=== PATIENT | female | born 1965 | race Caucasian/White ===

== ENCOUNTER 2016-05-28 12:23 | Emergency (ER) | payer BC, OTHER ==
[2016-05-28] MEDS ORDERED: NORMAL SALINE 1,000 ML IV ONE ×2 (13:13→14:56)
[2016-05-28 13:31] LABS: Hematocrit 41.6 % (37.0-47.0); Hemoglobin 14.1 gm/dL (12.5-16.0); Mean Corpuscular Hemoglobin 29.5 pg (27-31); Mean Corpuscular Hgb Conc 33.9 g/dl (32-36); Mean Platelet Volume 8.3 fl (6.0-9.5); Neutrophil # 4.3 K/mm3 (1.3-6.0); Neutrophil % 48.7 % (42-75.0); Platelet Count 299 K/mm3 (150-450); Red Blood Count 4.78 M/mm3 (4.2-5.4); Red Cell Distribution Width 12.9 % (11.5-14.0); White Blood Count 8.8 K/mm3 (4.0-10.5)
[2016-05-28 13:37] LABS: Urine Bilirubin Negative (NEGATIVE); Urine Ketone Negative (NEGATIVE); Urine Nitrite Negative (NEGATIVE); Urine Protein Negative (NEGATIVE); Urine Specific Gravity 1.015 SP.GR. (1.005-1.010); Urine Urobilinogen Normal (NORMAL)
[2016-05-28 13:48] LABS: Urine Appearance Clear; Urine Bacteria None Seen; Urine Blood 10 /ul (NEGATIVE); Urine Color Yellow; Urine RBC 0-5 /hpf (0-5); Urine WBC 0-5 /hpf (0-5)
[2016-05-28 13:49] LABS: ALT 16 U/L (19-67); AST 11 U/L (0-48); Albumin * 3.7 gm/dl (3.4-5.0); Alkaline Phosphatase * 80 U/L (50-170); Anion Gap 12.5 mmol/L (6.8-13.8); BUN/Creatinine Ratio 13.9 (9.0-21.6); Bilirubin, Total 0.3 mg/dL (0.0-1.1); Blood Urea Nitrogen 11 mg/dL (3-23); Ca. Corrected For Albumin 9.1 mg/dL (8.4-10.2); Calcium * 9.2 mg/dL (7.9-10.9); Carbon Dioxide 26.8 mmol/L (24-32.6); Chloride 105 mmol/L (97-106); Glucose * 77 mg/dL (70-110); Potassium 4.3 mmol/L (3.4-4.6); Sodium 140 mmol/L (132-142); Total Protein 7.6 gm/dL (6.2-8.2); Troponin I Less than 0.017 ng/ml (0.00-0.10)
[2016-05-28] MEDS ORDERED: KETOROLAC TROMETHAMINE 30 MG/ML VIAL IV ONE (14:56)
[2016-05-28] MEDS ORDERED: fentaNYL CITRATE/PF 50 MCG/ML AMPUL IV ONE (14:58)
[2016-05-28] MEDS ORDERED: KETOROLAC TROMETHAMINE 30 MG/ML VIAL ONE (15:01)
[2016-05-28] MEDS ORDERED: fentaNYL CITRATE/PF 50 MCG/ML AMPUL ONE (15:04)
[2016-05-28 15:56] VITALS: BP 152/56
[2016-05-28] MEDS ORDERED: LEVOFLOXACIN/D5W 500 MG/100 ML BAG IV SCH (16:15)
--- NOTE | 2016-05-28 17:10 | ERNOTE ---
Medical Problem HPI - Narrative Date of Service: 05/28/16 - General Chief Complaint: Fever Time Seen by Provider: 05/28/16 13:00 Source: patient Exam Limitations: no limitations - Immun/Allergies/Home Medications Immunizations: IMMUNIZATION HX Immunizations Up to Date Yes History of Influenza Vaccine No Hx Pneumococcal Vaccination No Allergies/Adverse Reactions: Allergies erythromycin base [Erythromycin Base] Allergy (Verified 08/14/14 05:04) Penicillins Allergy (Verified 08/14/14 05:04) morphine Adverse Reaction (Verified 08/14/14 05:04) Home Medications: HOME MEDICATIONS Hydrocodone/Acetaminophen [Rimrock 5-325 Tablet] 1 tab PO Q6H PRN #12 tab [Last Taken Unknown] Levofloxacin [Levaquin] 500 mg PO DAILY #10 tab 05/28/16 [Last Taken Unknown] Omeprazole 40 mg PO DAILY 05/28/16 [Last Taken Unknown] - History of Present History Narrative: Patient presents with fever at home. has been having some nasal Sx for 2 weeks but over the last 3 days had been having increased frontal/facial pain/OSCAR and fever at home. No vomiting. No rash. No dysuria. works at a [employer]. Has had sick contacts. Has not seen anyone else for this. No CP or abdominal pain. Mild SOB feeling at times. Significant sinusitis close contact. No focal N/T/W. Mild lightheadedness. Timing: constant Severity: moderate Modifying Factors - (Improves): Present: other - none Modifying Factors - (Worsens): Present: other - none Review of Systems - Review of Systems Constitutional: Present: fever EYE: Absent: double vision ENT: Present: nose congestion Respiratory: Absent: cough Cardiology: Absent: chest pain Gastrointestinal/Abdominal: Absent: vomiting Genitourinary: Absent: dysuria Musculoskeletal: Absent: neck pain Skin: Absent: rash All Other Systems: All systems neg except as marked - Patient's Past Medical History Patient History - Medical: GERD Patient History - Cancer: No Hx of Cancer Patient History - Surgical Procedures: Appendectomy, Cholecystectomy, T & A, Other - Social History Smoking Status: Current every day smoker Have you smoked in the past 12 months: Yes Do you dip or chew tobacco: No Alcohol Use: rarely Drug Use: none Physical Exam - Physical Exam General Appearance: Present: alert, no apparent distress. Absent: lethargic, irritable, crying Eye Exam: Normal inspection: bilateral, PERRL: bilateral Ears, Nose, Throat: Present: nasal congestion, sinus pain/drainage, normal pharynx. Absent: abnormal TM (R), abnormal TM (L), pharyngeal erythema, pharyngeal swelling, tonsillar exudate, dry mucous membranes Neck: Present: normal inspection, nontender, supple, other - no meningeal signs Respiratory: Present: no respiratory distress, normal breath sounds, no accessory muscle use, lungs clear Cardiovascular/Chest: Present: regular rate, rhythm Gastrointestinal/Abdominal: Present: normal bowel sounds, nontender, soft. 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 Absent: motor weakness Skin Exam: Present: normal color, warm/dry. Absent: skin rash ED Progress - Results and Orders Patient's Lab Results:: I have reviewed the patient's lab results. - Vital Signs Patient's Vital Signs:: I have reviewed the patient's vital signs. Vital Signs: Vital Signs 05/28/16 05/28/16 05/28/16 12:35 13:51 14:17 Temperature 36.5 C Pulse Rate 63 55 L 59 L Respiratory 13 18 12 Rate Blood Pressure 121/47 97/43 103/49 O2 Sat by Pulse 96 96 98 Oximetry 05/28/16 05/28/16 14:52 15:50 Temperature Pulse Rate 56 L 74 Respiratory 12 12 Rate Blood Pressure 114/55 152/56 O2 Sat by Pulse 98 98 Oximetry - EKG EKG: other - Sinus Avi. no STEMI. EKG read: Reviewed by me - X-Ray X-Ray #1 X-Ray: chest X-ray Comments: Reviewed radiology report - CT/Ultrasound CT/Ultrasound Narrative: Reviewed CT report and discussed with patient. - Progress/Reassessment Chief Complaint: Fever Progress:: Improved Progress Note-Subjective: 05/28/16 17:02 Patient Has sinusitis on HCT. I discussed LP with her, risks and benefits but she declines this. Patient declines LP and understands risks. Clinically her OSCAR is explained by the sinusitis. IV Abx given. She feels like going home. We had an appt scheduled for her . She understands that she should return here if she changes her mind about having the LP. She is stable, non- toxic and in no distress. I discussed warning signs and reasons to returnas well as the need for close f/u. - Transfer of Care Additional Notes: patient states she can take norco without difficulty Departure - Departure Clinical Impression: Sinusitis Disposition: Home self-care Condition: Stable Instructions: Sinusitis, Adult, [id number] Additional Instructions: Rest. Fluids. No driving with pain medications. Antibiotic as directed. Follow-up as directed on . Return here if you change your mind about having the lumbar puncture we discussed, if you develop weakness, trouble breathing or swallowing or if your condition worsens or changes in any way. Prescriptions: Hydrocodone/Acetaminophen [Rimrock 5-325 Tablet] 1 tab PO Q6H PRN #12 tab PRN Reason: Pain Levofloxacin [Levaquin] 500 mg PO DAILY #10 tab
== END 2016-05-28 17:31 | disposition home or self-care (01) ==
LOC: ER 12:23
DX: J32.9 Chronic sinusitis, unspecified (principal); F17.210 Nicotine dependence, cigarettes, uncomplicated; K21.9 Gastro-esophageal reflux disease without esophagitis

== ENCOUNTER 2016-07-07 09:26 | Emergency (ER) | payer OTHER ==
[2016-07-07 10:18] VITALS: BP 142/85
--- NOTE | 2016-07-07 10:29 | ERNOTE ---
Integumentary HPI - Narrative Date of Service: 07/07/16 - General Presenting Symptoms: abscess Time Seen by Provider: 07/07/16 10:28 Source: patient, RN notes reviewed Exam Limitations: no limitations - Immun/Allergies/Home Medications Immunizations: IMMUNIZATION HX Immunizations Up to Date Yes History of Influenza Vaccine Yes Hx Pneumococcal Vaccination No Allergies/Adverse Reactions: Allergies Allergy/AdvReac Type Severity Reaction Status Date / Time Penicillins Allergy Severe Anaphylaxis Verified 07/07/16 10:15 erythromycin base Allergy Mild Hives Verified 07/07/16 10:15 [Erythromycin Base] morphine AdvReac Intermediate Other Verified 07/07/16 10:15 prochlorperazine AdvReac Mild Other Verified 07/07/16 10:15 [From Compazine] prochlorperazine edisylate AdvReac Mild Other Verified 07/07/16 10:15 [From Compazine] prochlorperazine maleate AdvReac Mild Other Verified 07/07/16 10:15 [From Compazine] Home Medications: HOME MEDICATIONS Omeprazole 40 mg PO DAILY 05/28/16 [Last Taken Unknown] - History of Present Illness Narrative: 50 y/o female ambulatory to the ED for an abscess in her left groin that was pea sized yesterday and has progressed to golf ball size today. It is painful, but she denies any symptoms of systemic illness. She has had a sebaceous cyst under her breast in the past, but has otherwise no history of abscesses or skin infections. Date (Duration): 07/06/16 Location: Reports: torso Quality: Reports: painful Associated Symptoms: Reports: swelling/mass/lumps. Denies: blisters, rash, fever, headache, malaise Prior Treatment: Denies: recently seen, currently on antibiotics Review of Systems - Review of Systems Constitutional: Absent: fever, chills EYE: Present: no symptoms reported ENT: Present: no symptoms reported Respiratory: Present: no symptoms reported Cardiology: Present: no symptoms reported Gastrointestinal/Abdominal: Absent: nausea, vomiting Genitourinary: Present: no symptoms reported Musculoskeletal: Absent: muscle pain, joint pain Skin: Present: lesions. Absent: rash Neurological: Absent: headache, dizziness/light-headedness Endocrine: Present: no symptoms reported Hematologic/Lymphatic: Present: no symptoms reported Psych: Present: no symptoms reported - Patient's Past Medical History Patient History - Medical: GERD Patient History - Cardiac/Respiratory: No pertinent hx Patient History - Cancer: No Hx of Cancer Patient History - Surgical Procedures: Appendectomy, Cholecystectomy, Hysterectomy, T & A, Other Patient History - Other: None - Social History Living Situations: home Abuse History: No History of abuse Psych History: No pertinent hx Smoking Status: Current every day smoker Have you smoked in the past 12 months: Yes Do you dip or chew tobacco: No Patient requests Smoking Cessation Consult: No Initiate information on Smoking Cessation: No Alcohol Use: rarely Drug Use: none - Immunizations Immunizations Up to Date: Yes Hx Pneumococcal Vaccination: No History of Influenza Vaccine: Yes Physical Exam - Physical Exam General Appearance: Present: wd/wn, alert, no apparent distress Respiratory: Present: no respiratory distress, normal breath sounds, no accessory muscle use, lungs clear Cardiovascular/Chest: Present: regular rate, rhythm, no murmur, normal peripheral pulses Neurological Exam: Present: alert, oriented, normal mood/affect, no motor/ sensory deficits Skin Exam: Present: normal color, warm/dry, other - moderate sized inflammed cystic lesion in left groin ED Progress - Vital Signs Patient's Vital Signs:: I have reviewed the patient's vital signs. Vital Signs: Vital Signs 07/07/16 10:12 Temperature 36.7 C Pulse Rate 78 Respiratory 18 Rate Blood Pressure 142/85 O2 Sat by Pulse 99 Oximetry - Progress/Reassessment Chief Complaint: Abscess Progress:: Improved Procedures Left Groin Anesthesia: Lidocaine w/ Epi I & D Prep: betadine prep, sterile dressing applied Blade Size: 11 Findings and Actions: purulent drainage moderate, probed/breakup loculation, packed with guaze Complications: Pt jeff procedure well Departure Clinical Impression: Abscess - Departure Disposition: Home self-care Condition: Good Instructions: Abscess, [id number] Additional Instructions: Remove packing tomorrow or the next day Change dressing as needed Tylenol and/or ibuprofen for pain Follow up for fever, worsening pain, or other concerns Referrals: Traci Pagan FNP [Primary Care Provider] -
== END 2016-07-07 11:20 | disposition home or self-care (01) ==
LOC: ER 09:26
PROC: 0H97XZZ Drainage of Abdomen Skin, External Approach (ICD-10-PCS; principal; 2016-07-07)
DX: L02.214 Cutaneous abscess of groin (principal)

== ENCOUNTER 2017-11-19 07:39 | Observation (INO) ==
[2017-11-19 08:18] LABS: Urine Bilirubin Negative (NEGATIVE); Urine Blood 50 /ul (NEGATIVE); Urine Ketone Negative (NEGATIVE); Urine Nitrite Negative (NEGATIVE); Urine Protein Negative (NEGATIVE); Urine Specific Gravity >=1.030 SP.GR. (1.005-1.010); Urine Urobilinogen Normal (NORMAL)
[2017-11-19 08:32] LABS: Urine Appearance Clear (CLEAR); Urine Bacteria TRACE; Urine Color Yellow; Urine WBC TRACE /hpf (0-5)
[2017-11-19] MEDS ORDERED: NORMAL SALINE 1,000 ML IV ONE ×2 (08:50→13:52)
[2017-11-19] MEDS ORDERED: HYDROmorphone HCL 1 MG/ML DISP.SYRIN IV ONE ×3 (08:50→12:27)
[2017-11-19] MEDS ORDERED: DIATRIZOATE MEGLUMINE, SODIUM 30 ML BTL PO ONE (08:50)
[2017-11-19] MEDS ORDERED: ONDANSETRON HCL/PF 2 MG/ML VIAL IV ONE (08:51)
[2017-11-19] MEDS ORDERED: HYDROmorphone HCL 1 MG/ML DISP.SYRIN ONE ×3 (08:54→12:55)
[2017-11-19] MEDS ORDERED: ONDANSETRON HCL/PF 2 MG/ML VIAL ONE (08:54)
[2017-11-19 09:06] LABS: Hematocrit 42.3 % (37.0-47.0); Mean Cell Volume 88.5 fl (78-100); Mean Corpuscular Hemoglobin 29.3 pg (27-31); Mean Corpuscular Hgb Conc 33.1 g/dl (32-36); Mean Platelet Volume 8.6 fl (8-12.5); Neutrophil # 5.7 K/mm3 (1.3-6.0); Neutrophil % 70.7 % (42-75.0); Platelet Count 273 K/mm3 (150-450); Red Blood Count 4.78 M/mm3 (4.2-5.4); Red Cell Distribution Width 12.7 % (11.5-14.0); White Blood Count 8.1 K/mm3 (4.0-10.5)
[2017-11-19 09:14] LABS: Albumin * 3.6 gm/dl (3.4-5.0); Anion Gap 11.7 mmol/L (6.8-13.8); BUN/Creatinine Ratio 27.7 (9.0-21.6); Bilirubin, Total 0.4 mg/dL (0.0-1.1); Ca. Corrected For Albumin 8.8 mg/dL (8.4-10.2); Calcium * 8.8 mg/dL (7.9-10.9); Carbon Dioxide 26.1 mmol/L (24-32.6); Potassium 3.8 mmol/L (3.4-4.6); Total Protein 7.3 gm/dL (6.2-8.2)
[2017-11-19] MEDS ORDERED: DIATRIZOATE MEGLUMINE, SODIUM 30 ML BTL ONE (09:20)
[2017-11-19] MEDS ORDERED: LEVOFLOXACIN IN DEXTROSE 5 % 500 MG/100 ML BAG IV SCH (12:15)
[2017-11-19] MEDS ORDERED: PANTOPRAZOLE SODIUM 40 MG in NORMAL SALINE 100 ML IV ONE (12:15)
[2017-11-19] MEDS ORDERED: metroNIDAZOLE/SODIUM CHLORIDE 500 MG/100 ML BAG IV SCH (12:15)
--- NOTE | 2017-11-19 12:22 | ERNOTE ---
Abdominal HPI - Narrative Date of Service: 11/19/17 - General Chief Complaint: Abdominal Pain Time Seen by Provider: 11/19/17 08:42 Source: patient Exam Limitations: no limitations - Immun/Allergies/Home Medications Immunizatons: IMMUNIZATION HX Immunizations Up to Date Yes History of Influenza Vaccine Yes Hx Pneumococcal Vaccination No Allergies/Adverse Reactions: Allergies Penicillins Allergy (Severe, Verified 07/07/16 10:15) Anaphylaxis erythromycin base [Erythromycin Base] Allergy (Mild, Verified 07/07/16 10:15) Hives morphine Adverse Reaction (Intermediate, Verified 07/07/16 10:15) Other prochlorperazine [From Compazine] Adverse Reaction (Mild, Verified 07/07/16 10: 15) Other prochlorperazine edisylate [From Compazine] Adverse Reaction (Mild, Verified 09/18 10:15) Other prochlorperazine maleate [From Compazine] Adverse Reaction (Mild, Verified 07/07 10:15) Other Home Medications: HOME MEDICATIONS Omeprazole 40 mg PO DAILY 05/28/16 [Last Taken Unknown] - History of Present Illness Narrative: Patient presents to the ED for severe abdominal pain. low abdominal pain, middle of her abdomen into her rectum. Mucoid stool. No blood. Nausea with this. No CP or SOB. Hurts to move and sit up. Has never had anything exactly like this before. Severe pain. No known fever. Sharp pain and cramping. Timing: constant, getting worse Quality: severe Activities at Onset: none Modifying Factors - (Improves): Present: other - nothign Modifying Factors - (Worsens): Present: other - movement and sitting up Associated Symptoms: Present: diarrhea-mucous. Absent: chest pain, fever/chills , shortness of breath, syncope Prior Treatment: Absent: recently seen Review of Systems - Review of Systems Constitutional: Absent: fever ENT: Absent: sore throat Respiratory: Absent: shortness of breath Cardiology: Absent: chest pain Gastrointestinal/Abdominal: Present: See HPI Genitourinary: Absent: dysuria Musculoskeletal: Present: no symptoms reported All Other Systems: All systems neg except as marked Social History: Preferred Language Serbian Do you have any yarsanism or Yes: adventist cultural preference? Smoking Status Current some day smoker Have you smoked in the past 12 Yes months Do you dip or chew tobacco No Abuse History No History of abuse Psych History No pertinent hx Alcohol Use none Drug Use none Physical Exam - Physical Exam General Appearance: Present: alert, no apparent distress Head Exam: Present: normal inspection, no evidence of injury Eye Exam: Normal inspection: bilateral, PERRL: bilateral Ears, Nose, Throat: Present: normal ENT inspection Neck: Present: normal inspection Respiratory: Present: no respiratory distress, normal breath sounds, no accessory muscle use, lungs clear Cardiovascular/Chest: Present: regular rate, rhythm, normal peripheral pulses Gastrointestinal/Abdominal: Present: normal bowel sounds, nondistended, soft, other - Tenderess diffuse low abd with left greater than right. no clear peritoneal signs Back Exam: Absent: CVA tenderness (R), CVA tenderness (L) Extremity Exam: Present: normal inspection Neurological Exam: Present: alert, no motor/sensory deficits Skin Exam: Present: normal color, warm/dry ED Progress - Results and Orders Patient's Lab Results:: I have reviewed the patient's lab results. - Vital Signs Patient's Vital Signs:: I have reviewed the patient's vital signs. Vital Signs: Vital Signs 11/19/17 08:13 11/19/17 09:32 11/19/17 09:45 Temperature 36.4 C 36.4 C Pulse Rate 93 75 71 Respiratory Rate 12 14 Blood Pressure 142/91 H 114/55 119/65 O2 Sat by Pulse Oximetry 97 97 - CT/Ultrasound CT/Ultrasound Narrative: I reviewed official radiology report CT scan - Progress/Reassessment Chief Complaint: Abdominal Pain Progress Note-Subjective: 11/19/17 12:20 Patient given repeated IV narcotics for pain, IV ABx given. She has diverticulitis clinically and by CT. She is having too much pain to go home. Will speak with medicaine about admission obs for pain control and IV ABx. 11/19/17 12:[address] Salazar, he will admit. Departure Clinical Impression: Abdominal pain, Diverticulitis, Intractable abdominal pain - Departure Disposition: Still a patient Condition: Stable Referrals: Traci Pagan FNP [Primary Care Provider] -
[2017-11-19] MEDS: metroNIDAZOLE/SODIUM CHLORIDE 500 MG/100 ML BAG IV SCH ×2 (14:55→21:27)
[2017-11-19] MEDS: ONDANSETRON HCL/PF 2 MG/ML VIAL IV PRN ×2 (14:56→21:16)
[2017-11-19] MEDS: HYDROmorphone HCL 1 MG/ML DISP.SYRIN IV PRN ×2 (18:47→23:20)
[2017-11-19] MEDS ORDERED: NORMAL SALINE 1,000 ML IV PRN (22:56)
--- NOTE | 2017-11-19 23:11 | HP ---
Chief Complaint - Chief Complaint Date of Service: 11/19/17 Time of Service: 22:57 Chief Complaint: abdominal pain History of Present Illness: Patient is a 52 yr old female, PMH significant for: She presented to the ED for severe abdominal pain. She states it began three days ago. She was taking a dulcolax laxative for this without result. She describes the pain as sharp/ cramping, mid-lower abdominal pain, radiating into her rectum. Denies any fevers , chills, flank pain, dysuria or hematuria, nausea or diarrhea. No blood in stool, he last BM was Friday. This is unusual for her as she usually goes everyday. She does have a history of multiple abdominal surgeries and pathologies including a gastric sleeve, hysterectomy, endometriosis,and PID, although she has never experienced anything like this before. In the ER she had a CT abdomen completed which revealed diverticulosis with some pericolonic inflammatory change of the sigmoid colon and bilateral nephrolithasis. She was given IV Flagyl, her pain was unable to be controlled. She will be admitted to observation overnight for pain control and IV antibiotics. Medical History (Last Updated 11/19/17 @ 23:05 by Radha Metz NP) Endometriosis GERD (gastroesophageal reflux disease) Gastric bypass status for obesity History of appendectomy Hx of cholecystectomy Hx of tonsillectomy PID (pelvic inflammatory disease) Surgical History: Surgical History (Last Updated 11/19/17 @ 13:42 by Sonya Castle RN) History of total abdominal hysterectomy and bilateral salpingo-oophorectomy Family History: Family History (Last Updated 11/19/17 @ 13:42 by Sonya Castle RN) Mother Breast cancer Glaucoma Father CVA (cerebral vascular accident) Social History: Patient Lives/Resources 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 Smoking Status Current every day smoker Have you smoked in the past 12 Yes months Do you dip or chew tobacco No Abuse History No History of abuse Psych History No pertinent hx Alcohol Use none Drug Use none Review Of Systems (GEN) - Review of Systems Generalized/Overall Review: Present: No Symptoms Reported EENTM: Present: No Symptoms Reported Respiratory: Present: No Symptoms Reported Cardiac: Present: No Symptoms Reported Abdominal: Present: Abdominal Pain, Constipation. Absent: Nausea, Vomiting, Hematemesis, Diarrhea, Melena Genitourinary: Present: No Symptoms Reported Musculoskeletal: Present: No Symptoms Reported Neurological: Present: No Symptoms Reported Skin: Present: No Symptoms Reported Endocrine: Present: No Symptoms Reported Immunizations: IMMUNIZATION HX Immunizations Up to Date Yes History of Influenza Vaccine Yes Hx Pneumococcal Vaccination No Allergies/Adverse Reactions: Allergies Allergy/AdvReac Type Severity Reaction Status Date / Time Penicillins Allergy Severe Anaphylaxis Verified 11/19/17 13:36 erythromycin base Allergy Mild Hives Verified 11/19/17 13:36 [Erythromycin Base] morphine AdvReac Intermediate Other Verified 11/19/17 13:36 prochlorperazine AdvReac Mild Other Verified 11/19/17 13:36 [From Compazine] prochlorperazine edisylate AdvReac Mild Other Verified 11/19/17 13:36 [From Compazine] prochlorperazine maleate AdvReac Mild Other Verified 11/19/17 13:36 [From Compazine] Home Medications: HOME MEDICATIONS Omeprazole 40 mg PO DAILY 05/28/16 [Last Taken 11/18/17 09:00] Exam - Exam Vital Signs: Vital Signs - Last Taken Temp 36.5 C 11/19/17 22:14 Pulse 73 11/19/17 22:14 Resp 18 11/19/17 22:14 BP 107/65 11/19/17 22:14 Pulse Ox 96 11/19/17 22:14 Constitutional: Present: Alert, Oriented x3, Cooperative, Well developed, Well nourished, No distress ENT Exam: Present: normal ENT inspection, hearing grossly normal, pharynx normal Eye Exam: bilateral eye: normal inspection Back Exam: Present: normal inspection, no CVA tenderness, no vertebral tenderness Breasts: Present: Exam deferred Respiratory: Present: chest non-tender, lungs clear, normal breath sounds, no respiratory distress, no accessory muscle use Cardiovascular/Chest: Present: normal peripheral pulses, regular rate, rhythm, no chest tenderness, no edema, no gallop, no JVD, no murmur Peripheral Pulses: dorsalis-pedis (R): 1+, dorsalis-pedis (L): 1+, radial (R): 1 +, radial (L): 1+ Abdomen: Present: Normal bowel sounds, soft, nondistended, no rebound tenderness , no hepatospenomegaly, no masses, suprapubic tenderness /Rectal: Present: Exam deferred Extremity: Present: normal range of motion, non-tender, normal inspection, no pedal edema, no calf tenderness Skin Exam: Present: normal color, warm/dry, no cyanosis Lymphatic: Present: no adenopathy Neurologic: Present: no motor/sensory deficits, alert, normal mood/affect, oriented x 3 Appearance: Present: appropriate appearance, appropriate insight, neat, no memory impairment Eye contact: Present: cooperative, good eye contact, normal speech Thoughts: Present: normal thought pattern, no apparent hallucination Diagnostic Studies: Abnormal Lab Results 11/19/17 11/19/17 11/19/17 Range/Units 07:45 08:57 08:57 Immature Gran % (Auto) 1.20 H (0.001-0.429) % Immature Gran # (Auto) 0.10 H (0.000-0.0310) K/mm3 Lymphocytes % 19.3 L (20-51) % BUN/Creatinine Ratio 27.7 H (9.0-21.6) Random Glucose 114 H (70-110) mg/dL ALT 16 L (19-67) U/L Urine Blood 50 H (NEGATIVE) /ul Urine RBC 5-10 H (0-5) /hpf Urine WBC Trace H (0-5) /hpf Ur Epithelial Cells 5-10 H (0-5) /hpf Laboratory Results WBC 8.1 K/mm3 (4.0-10.5) 11/19/17 08:57 RBC 4.78 M/mm3 (4.2-5.4) 11/19/17 08:57 Hgb 14.0 gm/dL (12.5-16.0) 11/19/17 08:57 Hct 42.3 % (37.0-47.0) 11/19/17 08:57 MCV 88.5 fl (78-100) 11/19/17 08:57 MCH 29.3 pg (27-31) 11/19/17 08:57 MCHC 33.1 g/dl (32-36) 11/19/17 08:57 RDW 12.7 % (11.5-14.0) 11/19/17 08:57 Plt Count 273 K/mm3 (150-450) 11/19/17 08:57 MPV 8.6 fl (8-12.5) 11/19/17 08:57 Immature Gran % (Auto) 1.20 % (0.001-0.429) H 11/19/17 08:57 Immature Gran # (Auto) 0.10 K/mm3 (0.000-0.0310) H 11/19/17 08:57 Neutrophils % 70.7 % (42-75.0) 11/19/17 08:57 Lymphocytes % 19.3 % (20-51) L 11/19/17 08:57 Monocytes % 6.2 % (0.0-9) 11/19/17 08:57 Eosinophils % 1.7 % (0.0-3.0) 11/19/17 08:57 Basophils % 0.9 % (0.0-1.0) 11/19/17 08:57 Nucleated RBC % 0.0 k/mm3 (0-1) 11/19/17 08:57 Neutrophils # 5.7 K/mm3 (1.3-6.0) 11/19/17 08:57 Lymphocytes # 1.56 k/mm3 (1.5-3.5) 11/19/17 08:57 Monocytes # 0.5 k/mm3 (0.0-1.0) 11/19/17 08:57 Eosinophils # 0.1 k/mm3 (0.0-0.7) 11/19/17 08:57 Absolute Basophils 0.1 k/mm3 (0.0-0.1) 11/19/17 08:57 Sodium 140 mmol/L (132-142) 11/19/17 08:57 Plasma Sodium 140 mmol/L (130-142) 11/19/17 08:57 Potassium 3.8 mmol/L (3.4-4.6) 11/19/17 08:57 Chloride 106 mmol/L (97-106) 11/19/17 08:57 Carbon Dioxide 26.1 mmol/L (24-32.6) 11/19/17 08:57 Anion Gap 11.7 mmol/L (6.8-13.8) 11/19/17 08:57 BUN 18 mg/dL (3-23) 11/19/17 08:57 Creatinine 0.65 mg/dL (0.4-1.4) 11/19/17 08:57 Est GFR (Non-Af Amer) 101 mL/min (60-130) D 11/19/17 08:57 BUN/Creatinine Ratio 27.7 (9.0-21.6) H 11/19/17 08:57 Random Glucose 114 mg/dL (70-110) H 11/19/17 08:57 Calcium 8.8 mg/dL (7.9-10.9) 11/19/17 08:57 Calcium Adj for Albumin 8.8 mg/dL (8.4-10.2) 11/19/17 08:57 Total Bilirubin 0.4 mg/dL (0.0-1.1) 11/19/17 08:57 AST 12 U/L (0-48) 11/19/17 08:57 ALT 16 U/L (19-67) L 11/19/17 08:57 Alkaline Phosphatase 91 U/L (50-170) 11/19/17 08:57 Total Protein 7.3 gm/dL (6.2-8.2) 11/19/17 08:57 Albumin 3.6 gm/dl (3.4-5.0) 11/19/17 08:57 Amylase 25 U/L (25-115) 11/19/17 08:57 Lipase 110 U/L (73-393) 11/19/17 08:57 Urine Color Yellow 11/19/17 07:45 Urine Appearance Clear (CLEAR) 11/19/17 07:45 Urine pH 6.0 pH (5.0-7.0) 11/19/17 07:45 Ur Specific [place] >=1.030 SP.GR. (1.005-1.010) 11/19/17 07:45 Urine Protein Negative mg/dL (NEGATIVE) 11/19/17 07:45 Urine Glucose (UA) Negative mg/dL (NEGATIVE) 11/19/17 07:45 Urine Ketones Negative mg/dL (NEGATIVE) 11/19/17 07:45 Urine Blood 50 /ul (NEGATIVE) H 11/19/17 07:45 Urine Nitrate Negative (NEGATIVE) 11/19/17 07:45 Urine Bilirubin Negative mg/dl (NEGATIVE) 11/19/17 07:45 Urine Urobilinogen Normal EU/dl (NORMAL) 11/19/17 07:45 Ur Leukocyte Esterase Negative /ul (NEGATIVE) 11/19/17 07:45 Urine RBC 5-10 /hpf (0-5) H 11/19/17 07:45 Urine WBC Trace /hpf (0-5) H 11/19/17 07:45 Ur Epithelial Cells 5-10 /hpf (0-5) H 11/19/17 07:45 Urine Bacteria Trace (NONE) 11/19/17 07:45 Urine Culture Comments No culture indicated 11/19/17 07:45 Assessment/Plan - Assessment/Plan (1) Diverticulitis Assessment: CT scan diverticulosis with some pericolonic inflammatory change of the sigmoid colon - Clear liquid diet - IV Flagyl - Heating pad for comfort - PRN Dilaudid - 0.9 NS @ 125ml/hr Problem: Acute (2) Abdominal pain Assessment: as above* Problem: Acute (3) Nephrolithiasis Assessment: Nonobstructive per CT read, RBC present on UA - Toradol PRN Problem: Acute (4) GERD (gastroesophageal reflux disease) Assessment: - Continue IV Protonix Problem: Acute
[2017-11-20] MEDS: KETOROLAC TROMETHAMINE 30 MG/ML VIAL IV PRN ×2 (01:07→11:42)
[2017-11-20 05:17] LABS: Hematocrit 35.4 % (37.0-47.0); Hemoglobin 11.5 gm/dL (12.5-16.0); Mean Cell Volume 90.8 fl (78-100); Mean Corpuscular Hemoglobin 29.5 pg (27-31); Mean Corpuscular Hgb Conc 32.5 g/dl (32-36); Mean Platelet Volume 8.2 fl (8-12.5); Neutrophil # 4.1 K/mm3 (1.3-6.0); Platelet Count 180 K/mm3 (150-450); Red Cell Distribution Width 12.8 % (11.5-14.0); White Blood Count 6.3 K/mm3 (4.0-10.5)
[2017-11-20] MEDS ORDERED: metroNIDAZOLE/SODIUM CHLORIDE 500 MG/100 ML BAG IV SCH (05:30)
[2017-11-20] MEDS ORDERED: PANTOPRAZOLE SODIUM 40 MG TABLET.EC PO SCH (07:00)
--- NOTE | 2017-11-20 07:59 | PN ---
Subjective - Date and Time Seen Date: 11/20/17 Subjective Narrative: Bobbi is a much better today. She had a bowel movement, and her bloating and abdominal pain is significantly improved. Her nausea has also resolved, she likes the Toradol better than the dilaudid. She feels ready for discharge. Objective Objective Narrative: NAD RRR non labored respirations abd soft, min TTP, much improved from yesterday - Review of Systems Generalized/Overall Review: Reports: No Symptoms Reported Cardiac: Reports: No Symptoms Reported Abdominal: Reports: Other - Improved - Vitals Vitals: Last Vital Signs Temp 37 C 11/20/17 07:23 Pulse 64 11/20/17 07:23 Resp 18 11/20/17 07:23 BP 103/68 11/20/17 07:23 Pulse Ox 98 11/20/17 07:23 - Abnormal Lab Findings Abnormal Lab Findings: Abnormal Lab Results 11/19/17 11/19/17 11/19/17 Range/Units 07:45 08:57 08:57 RBC (4.2-5.4) M/mm3 Hgb (12.5-16.0) gm/dL Hct (37.0-47.0) % Immature Gran % (Auto) 1.20 H (0.001-0.429) % Immature Gran # (Auto) 0.10 H (0.000-0.0310) K/mm3 Lymphocytes % 19.3 L (20-51) % ESR (0-15) mm/hr BUN/Creatinine Ratio 27.7 H (9.0-21.6) Random Glucose 114 H (70-110) mg/dL ALT 16 L (19-67) U/L Urine Blood 50 H (NEGATIVE) /ul Urine RBC 5-10 H (0-5) /hpf Urine WBC Trace H (0-5) /hpf Ur Epithelial Cells 5-10 H (0-5) /hpf 11/20/17 11/20/17 Range/Units 05:05 05:05 RBC 3.90 L (4.2-5.4) M/mm3 Hgb 11.5 L (12.5-16.0) gm/dL Hct 35.4 L (37.0-47.0) % Immature Gran % (Auto) 0.50 H (0.001-0.429) % Immature Gran # (Auto) (0.000-0.0310) K/mm3 Lymphocytes % (20-51) % ESR 16 H (0-15) mm/hr BUN/Creatinine Ratio (9.0-21.6) Random Glucose (70-110) mg/dL ALT (19-67) U/L Urine Blood (NEGATIVE) /ul Urine RBC (0-5) /hpf Urine WBC (0-5) /hpf Ur Epithelial Cells (0-5) /hpf - Exam Constitutional: Present: Oriented x3 Respiratory: Present: no respiratory distress, no accessory muscle use Abdomen: Present: Normal bowel sounds, soft, no rebound tenderness Extremity: Present: normal range of motion Skin Exam: Present: normal color Assessment/Plan Plan Narrative: pt pain is improved dramatically nausea is resolved having bowel function recommend full liquids, advance to low residue diet as tolerated I added dietary consult for education on low residue diet and for high fiber diet in the future will need colonoscopy in approximately 6 weeks to evaluate - Problems/Diagnosis (1) Abdominal pain Problem: Acute (2) Diverticulitis Problem: Acute
--- NOTE | 2017-11-20 09:37 | CONS ---
[facility] - General Date of Service: 11/19/17 Narrative: Bobbi is a very pleasant D2-year-old female who developed abdominal pain a few days ago. She thought that she was constipated, and Dulcolax tablets. She then additional Dulcolax tablets yesterday. The pain continued to worsen. She has had multiple abdominal surgeries in the past, and was concerned that she could have a bowel obstruction. She had a CT scan which demonstrated acute diverticulitis. She was admitted for IV antibiotics and pain control. She is having nausea currently, and wonders if it could be related to the Dilaudid. She had a colonoscopy approximately 10 years ago. Source: patient - History of Present Illness Timing/Duration: getting worse Severity: severe Modifying Factors - (Worsens): Reports: movement Associated Symptoms: nausea Allergies/Adverse Reactions: Allergies Penicillins Allergy (Severe, Verified 11/19/17 13:36) Anaphylaxis erythromycin base [Erythromycin Base] Allergy (Mild, Verified 11/19/17 13:36) Hives morphine Adverse Reaction (Intermediate, Verified 11/19/17 13:36) Other prochlorperazine [From Compazine] Adverse Reaction (Mild, Verified 11/19/17 13: 36) Other prochlorperazine edisylate [From Compazine] Adverse Reaction (Mild, Verified 13:36) Other prochlorperazine maleate [From Compazine] Adverse Reaction (Mild, Verified 11/19 13:36) Other Home Medications: Home Medications Medication Instructions Recorded Last Taken Omeprazole 40 mg PO DAILY 05/28/16 11/18/17 09:00 Procedures Drainage of Abdomen Skin, External Approach (07/07/16) 7 laparoscopic surgeries to 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 Open hysterectomy Medications - Medications Current Medications: Current Medications Hydromorphone HCl (Dilaudid) 1 mg IV Q2H PRN PRN Reason: SEVERE PAIN (PAIN SCALE 7-10) Stop: 12/19/17 14:11 Last Admin: 11/19/17 23:20 Dose: 1 mg Sodium Chloride (Sodium Chloride 0.9%) 1,000 mls @ 125 mls/hr IV .Q8H PRN PRN Reason: HYDRATION Stop: 12/19/17 22:57 Last Admin: 11/20/17 01:10 Dose: 125 mls/hr Metronidazole (Flagyl) 500 mg in 100 mls @ 100 mls/hr IV Q8H [facility]; Protocol Stop: 11/20/17 22:29 Last Infusion: 11/20/17 06:23 Dose: Infused Ketorolac Tromethamine (Toradol) 30 mg IV Q6H PRN PRN Reason: Pain Stop: 11/21/17 17:01 Last Admin: 11/20/17 01:07 Dose: 30 mg Ondansetron HCl (Zofran) 8 mg IV Q6H PRN PRN Reason: Nausea And Vomiting Stop: 12/19/17 13:56 Last Admin: 11/19/17 21:16 Dose: 8 mg Pantoprazole Sodium (Protonix) 40 mg PO DAILY@0700 [facility] Stop: 12/20/17 07:01 Last Admin: 11/20/17 07:43 Dose: 40 mg Review of Systems - Review of Systems Generalized/Overall Review: Present: Malaise EENTM: Present: No Symptoms Reported Respiratory: Present: No Symptoms Reported Cardiac: Present: No Symptoms Reported Abdominal: Present: Nausea, Abdominal Pain, Constipation Genitourinary: Present: No Symptoms Reported Musculoskeletal: Present: No Symptoms Reported Neurological: Present: No Symptoms Reported Skin: Present: No Symptoms Reported Endocrine: Present: No Symptoms Reported Physical Examination - Exam Vital Signs: Vital Signs - Last Taken Temp 37 C 11/20/17 07:23 Pulse 64 11/20/17 07:23 Resp 18 11/20/17 07:23 BP 103/68 11/20/17 07:23 Pulse Ox 98 11/20/17 07:23 O2 Oxygen Delivery Method Room Air Constitutional: Present: Alert, Oriented x3, Cooperative, No distress ENT Exam: Present: hearing grossly normal Neck: Present: supple, trachea midline Respiratory: Present: no respiratory distress, no accessory muscle use Cardiovascular/Chest: Present: no edema Abdomen: Present: Normal bowel sounds, soft, tender - lower abd, suprapubic, suprapubic tenderness. Absent: guarding, rigidity, rebound tenderness Extremity: Present: normal range of motion Skin Exam: Present: normal color Neurologic: Present: oriented x 3 Appearance: Present: appropriate appearance Eye contact: Present: cooperative Thoughts: Present: normal thought pattern - Results and Findings: Lab/Microbiology results last 24 hrs: Abnormal/Pending Laboratory Last 24 HRS 11/20/17 11/20/17 05:05 05:05 RBC 3.90 L Hgb 11.5 L Hct 35.4 L Immature Gran % (Auto) 0.50 H ESR 16 H - Assessments/Findings (1) Abdominal pain Problem: Acute (2) Diverticulitis Problem: Acute PMFSH - Abdominal Pain : - Social History Smoking Status: Current some day smoker Plan - Plan Plan: I reviewed the patient's CT scan images and labs. I recommend that we proceed with conservative treatment. I agree with Dr. Salazar's current management. Continue with Levaquin and Flagyl. Slowly advance diet as her pain improves. In the a.m. I'll consult dietary for education on low residue diet and high- fiber diet. The patient would like to go on her planned vacation in [place] later in the week. If she continues to present improving this could still be possible. She'll need to have a colonoscopy with me in approximately 6 weeks, she has had a colonoscopy before but was almost 10 years ago. No family history of colon cancer. Thank you Dr. Salazar for allowing me to participate in the care of your patient, please call for any questions.
--- NOTE | 2017-11-20 14:00 | DS ---
(1) Ureterolithiasis Problem: Acute (2) Abdominal pain Problem: Acute Qualifiers: Abdominal location: left lower quadrant Qualified Code(s): R10.32 - Left lower quadrant pain (3) Diverticulitis Problem: Acute (4) Nephrolithiasis Problem: Chronic Description of Stay: Bobbi Wasserman is a 52-year-old female patient who was admitted through the emergency room for intractable and severe left lower quadrant abdominal pain. A CT scan was done in ER and demonstrated diverticulitis. Her urine however showed a lot of red blood cells per hpf with no pus cells. The CT scan also identified small intrarenal calculi. The hydromorphone did not relieve her pain. She then a 30 mg IV dose of Toradol which really did help her pain a lot. Also placing a heating pad on the abdomen helped a lot. By this morning her pain was gone although she was classifier tender over the left lower quadrant. She was not requiring any more pain medication. I progressed her diet from clear liquids to a regular diet which she handled well at lunch and has been up walking without difficulty. She was also started on IV metronidazole 500 mg 3 times a day. With the quick resolution of her symptoms I now believe she probably had a ureterolithiasis. A CT findings of diverticulitis are also noted but her symptoms have cleared too quickly I think for that to have been the case. Further she has not had any diarrhea, mucousy stools, or blood in the stools. She is feeling much better and would like to be dismissed. She was also seen by Dr. Chamberlain and they plan to do a lower endoscopy in about 6 weeks. Procedures Performed: none Results and Findings: Lab Pending Results 11/19/17 07:45: Urine Color Yellow, Urine Appearance Clear, Urine pH 6.0, Ur Specific Earp >=1.030, Urine Protein Negative, Urine Glucose (UA) Negative, Urine Ketones Negative, Urine Blood 50 H, Urine Nitrate Negative, Urine Bilirubin Negative, Urine Urobilinogen Normal, Ur Leukocyte Esterase Negative, Urine RBC 5-10 H, Urine WBC Trace H, Ur Epithelial Cells 5-10 H, Urine Bacteria Trace, Urine Culture Comments No culture indicated 11/19/17 08:57: WBC 8.1, RBC 4.78, Hgb 14.0, Hct 42.3, MCV 88.5, MCH 29.3, MCHC 33.1, RDW 12.7, Plt Count 273, MPV 8.6, Immature Gran % (Auto) 1.20 H, Immature Gran # (Auto) 0.10 H, Neutrophils % 70.7, Lymphocytes % 19.3 L, Monocytes % 6.2 , Eosinophils % 1.7, Basophils % 0.9, Nucleated RBC % 0.0, Neutrophils # 5.7, Lymphocytes # 1.56, Monocytes # 0.5, Eosinophils # 0.1, Absolute Basophils 0.1 11/19/17 08:57: Sodium 140, Plasma Sodium 140, Potassium 3.8, Chloride 106, Carbon Dioxide 26.1, Anion Gap 11.7, BUN 18, Creatinine 0.65, Est GFR (Non-Af Amer) 101 D, BUN/Creatinine Ratio 27.7 H, Random Glucose 114 H, Calcium 8.8, Calcium Adj for Albumin 8.8, Total Bilirubin 0.4, AST 12, ALT 16 L, Alkaline Phosphatase 91, Total Protein 7.3, Albumin 3.6, Amylase 25, Lipase 110 11/20/17 05:05: ESR 16 H 11/20/17 05:05: WBC 6.3 D, RBC 3.90 L, Hgb 11.5 L, Hct 35.4 L, MCV 90.8, MCH 29.5, MCHC 32.5, RDW 12.8, Plt Count 180, MPV 8.2, Immature Gran % (Auto) 0.50 H , Immature Gran # (Auto) 0.03, Neutrophils % 64.0, Lymphocytes % 26.3, Monocytes % 6.5, Eosinophils % 2.2, Basophils % 0.5, Nucleated RBC % 0.0, Neutrophils # 4.1, Lymphocytes # 1.66, Monocytes # 0.4, Eosinophils # 0.1, Absolute Basophils 0.0 Discharge Location: Home Disposition: Home self-care Condition: Stable Discharge Activity: Activity as tolerated Discharge Diet: General/regular food, High Fiber Referrals: Traci Pagan FNP [Primary Care Provider] - Additional Patient Instructions (free text): High-fiber diet and push fluids See Dr. Chamberlain in her office in 6 weeks. Complete Home Medications List: Complete Home Medication List: Omeprazole 40 mg PO DAILY 05/28/16
[2017-11-20 14:53] VITALS: BP 108/67
== END 2017-11-20 15:28 | disposition home or self-care (01) ==
LOC: MS 07:39 → ER 07:39 → MS 13:00
PROVIDERS: ADMIT Family Medicine; ATTEND Family Medicine
CPT/HCPCS: 36415; 74177; 80053; 81001; 82150; 83690; 85025; 85652; 96365; 96366; 96375; 96376; 99284; G0378; J2405